=== PATIENT | female | born 2000 | race African-American/Black ===

== ENCOUNTER 2024-06-26 08:14 | Emergency (ER) | payer OTHER ==
[2024-06-26] MEDS: Ibuprofen 600 MG Tab PO ONE (08:39)
[2024-06-26] MEDS: Acetaminophen 325 MG Tab PO ONE (08:39)
== END 2024-06-26 08:40 ==
LOC: LL.ED 08:14
DX: S09.90XA Unspecified injury of head, initial encounter (principal); V46.5XXA Car driver injured in collision with other nonmotor vehicle in traffic accident, initial encounter
CPT/HCPCS: 99283; A9270-GY

== ENCOUNTER 2024-09-04 06:27 | Emergency (ER) | payer SELFPAY ==
[2024-09-04] MEDS: Albuterol/Ipratropium 3.0-0.5 MG/3 ML Neb Soln NEB ONE ×2 (06:36→07:57)
== END 2024-09-04 07:53 | disposition home or self-care (01) ==
LOC: LL.ED 06:27
DX: R06.02 Shortness of breath (principal); R07.89 Other chest pain
CPT/HCPCS: 87428-QW; 94640; 99285; J7620-GY